=== PATIENT | female | born 1995 | race African-American/Black ===

== ENCOUNTER → 2024-02-10 15:11 | Outpatient (REF) | payer BC, SELFPAY | LOC: WDC 15:11 | PROVIDERS: ATTENDING PHYSICIAN Nurse Practitioner Adult Health | DX: R92.8 Other abnormal and inconclusive findings on diagnostic imaging of breast (principal) | CPT/HCPCS: 76642 ==

== ENCOUNTER → 2024-12-12 14:50 | Outpatient (REF) | payer BC, SELFPAY | LOC: HWRAD 14:50 | PROVIDERS: ATTENDING PHYSICIAN Nurse Practitioner Adult Health | DX: E04.1 Nontoxic single thyroid nodule (principal) | CPT/HCPCS: 76536 ==